=== PATIENT | female | born 1980 | race American Indian/Alaskan Native ===

== ENCOUNTER 2021-10-31 20:44 | Emergency (ER) | payer MEDICAID ==
[2021-11-01 03:24] LABS: Bacteria,Urine 1+ /HPF (Negative); Hyaline Casts,Urine 4 /LPF; Mucus,Urine 3+ /HPF
[2021-11-01 03:30] LABS: Bilirubin,Urine Negative (Negative); Blood,Urine Small (Negative); Color,Urine Yellow (Yellow); Urobilinogen,Urine < 2.0 mg/dL (<2.0)
--- NOTE | 2021-11-01 04:31 | Emergency Department Report ---
ED Back Pain/Injury HPI - General Chief Complaint: Back Pain/Injury Stated Complaint: BACK PAIN Source: patient Limitations: No Limitations - History of Present Illness Initial Comments: 41-year-old female presents to the ED complaining of low back pain x2 weeks. Patient denies any injury, unexplained weight loss neurological symptoms fever, IV drug use or steroid use. Patient diet denies any dysuria. Patient states pain sometimes often radiates to her right leg. Alert and oriented x3. Patient denies any prior medication prior to arrival . MD Complaint: back pain Onset/Timin -: week(s) Similar Symptoms Previously: Yes Radiation: right leg Severity: moderate Severity scale (0 -10): 6 Quality: aching Improves With: none Worsens With: none Associated Symptoms: denies other symptoms - Related Data Previous Rx's Medication Instructions Recorded Last Taken Type Amlodipine Besylate [Norvasc] 5 mg PO DAILY 30 Days #30 tab 11/01/21 Unknown Rx Nitrofurantoin [place]/M-Cryst 100 mg PO Q12HR 10 Days #20 capsule 11/01/21 Unknown Rx [Macrobid CAP] Allergies Allergy/AdvReac Type Severity Reaction Status Date / Time No Known Allergies Allergy Unverified 11/01/21 01:44 ED Review of Systems ROS: Stated complaint: BACK PAIN Other details as noted in HPI Constitutional: denies: chills, fever Eyes: denies: eye pain, eye discharge, vision change ENT: denies: ear pain, throat pain Respiratory: denies: cough, shortness of breath, wheezing Cardiovascular: denies: chest pain, palpitations Endocrine: no symptoms reported Gastrointestinal: denies: abdominal pain, nausea, diarrhea Genitourinary: denies: urgency, dysuria, discharge Musculoskeletal: denies: back pain, joint swelling, arthralgia Skin: denies: rash, lesions Neurological: denies: headache, weakness, paresthesias Psychiatric: denies: anxiety, depression Hematological/Lymphatic: denies: easy bleeding, easy bruising ED Past Medical Hx - Medications Home Medications: Home Medications Medication Instructions Recorded Confirmed Last Taken Type Amlodipine Besylate [Norvasc] 5 mg PO DAILY 30 Days #30 tab 11/01/21 Unknown Rx Nitrofurantoin [place]/M-Cryst 100 mg PO Q12HR 10 Days #20 capsule 11/01/21 Unknown Rx [Macrobid CAP] ED Physical Exam - General Limitations: No Limitations General appearance: alert, in no apparent distress - Head Head exam: Present: atraumatic, normocephalic - Eye Eye exam: Present: normal appearance - ENT ENT exam: Present: mucous membranes moist - Neck Neck exam: Present: normal inspection - Respiratory Respiratory exam: Present: normal lung sounds bilaterally. Absent: respiratory distress - Cardiovascular Cardiovascular Exam: Present: regular rate, normal rhythm. Absent: systolic murmur, diastolic murmur, rubs, gallop - GI/Abdominal GI/Abdominal exam: Present: soft, normal bowel sounds - Extremities Exam Extremities exam: Present: normal inspection - Back Exam Back exam: Present: normal inspection - Neurological Exam Neurological exam: Present: alert, oriented X3 - Psychiatric Psychiatric exam: Present: normal affect, normal mood - Skin Skin exam: Present: warm, dry, intact, normal color. Absent: rash ED Course Vital Signs 11/01/21 11/01/21 01:20 05:10 Temperature 98.1 F Pulse Rate 77 68 Respiratory 20 17 Rate Blood Pressure 180/102 184/108 [Right] O2 Sat by Pulse 97 100 Oximetry ED Medical Decision Making - Medical Decision Making 41-year-old female presents to the ED complaining of low back pain x2 weeks. Patient denies any injury, unexplained weight loss neurological symptoms fever, IV drug use or steroid use. Patient diet denies any dysuria. Patient states pain sometimes often radiates to her right leg. Alert and oriented x3. Patient denies any prior medication prior to arrival . No acute distress noted no ill appearance noted. Physical examination is unremarkable Urinalysis showed positive nitrate ,wbc 26 , will treat for acute urinary tract infection. Patient hypertension. Not treat asymptomatic hypertension restart patient on Norvasc 5 mg. Patient states she has been out of Norvasc 5 mg due to noncompliance . Rechecked the patient is resting quietly quietly and comfortable and feeling better. I discussed the results of diagnostic study, my clinical impression and the plan for further treatment with the patient. Patient agrees with plan and discharge at this present time. All question addressed. I have given the patient instruction regarding a diagnosis ,expectation ,follow- up and return precaution. I explained to the patient that emergent condition may arise and to return to the ED for new worsen and any new persisting condition. I have explained the importance of following up with the primary care physician or referral physician listed below has instructed. The patient verbalized understanding of discharge instruction. Critical care attestation.: If time is entered above; I have spent that time in minutes in the direct care of this critically ill patient, excluding procedure time. ED Disposition Clinical Impression: Acute urinary tract infection Hypertension Qualifiers: Hypertension type: primary hypertension Qualified Code(s): I10 - Essential (primary) hypertension Disposition: 01 HOME / SELF CARE / HOMELESS Is pt being admited?: No Does the pt Need Aspirin: No Condition: Stable Instructions: Antibiotic Medicine, Adult, [id number], Urinary Tract Infection, Adult, Hypertension, Adult, [id number], Hypertension (ED) Additional Instructions: Drink plenty of fluids Return to the ED for any worsening symptom Follow-up with primary care doctor Take Medication has prescribed Prescriptions: Nitrofurantoin [place]/M-Cryst [Macrobid CAP] 100 mg PO Q12HR 10 Days #20 capsule Amlodipine Besylate [Norvasc] 5 mg PO DAILY 30 Days #30 tab Referrals: [facility] [Provider Group] - 3-5 Days Time of Disposition: 04:35
[2021-11-01] MEDS ORDERED: amLODIPine 5 MG TAB PO ONE (05:07)
[2021-11-01 05:25] VITALS: BP 184/108
== END 2021-11-01 05:15 | disposition home or self-care (01) ==
LOC: ED 20:44
DX: N39.0 Urinary tract infection, site not specified (principal); I10 Essential (primary) hypertension
CPT/HCPCS: 81001; 87086; 99283

== ENCOUNTER 2022-01-07 12:11 | Emergency (ER) | payer MEDICAID ==
[2022-01-07] MEDS ORDERED: ALBUTEROL 2.5 MG/3 ML NEBU IH ONE (13:15)
[2022-01-07] MEDS ORDERED: predniSONE 50 MG TAB PO ONE (13:15)
--- NOTE | 2022-01-07 13:23 | Emergency Department Report ---
ED General Adult HPI - General Chief complaint: Adult Asthma Stated complaint: FEELING BAD WEAK COUGH Time Seen by Provider: 01/07/22 13:03 Source: patient Mode of arrival: Ambulatory Limitations: No Limitations - History of Present Illness Initial comments: 41-year-old -[place] Citizen female that is morbid obese presents to the emergency room stating that she just does not feel good. Patient states is been having coughing for the last few days and has vomited x2 in the last 2 days. She states that her blood pressure has been elevated in spite of taking her Norvasc. She reports her last menstrual period was in July and her last test was in October. She does admit to having a history of anemia. She had an appointment with her [employer] to see why she has not had a period but was declined to use to be seen as she was having a cough. Patient states her last COVID test was last Sunday. She denies any fever chills no nausea no vomiting no chest pain. She does report she has been using her inhaler for her asthma and wheezing. Onset/Timin -: days(s) Location: chest Severity scale (0 -10): 7 Improves with: none Worsens with: none Associated Symptoms: cough, headaches. denies: fever/chills, nausea/vomiting, shortness of breath Treatments Prior to Arrival: none - Related Data Previous Rx's Medication Instructions Recorded Last Taken Type Amlodipine Besylate [Norvasc] 5 mg PO DAILY 30 Days #30 tab 11/01/21 Unknown Rx Nitrofurantoin [place]/M-Cryst 100 mg PO Q12HR 10 Days #20 capsule 11/01/21 Unknown Rx [Macrobid CAP] Albuterol Sulfate [Proventil Hfa] 2 inhalation IH Q6H PRN #1 unit 01/07/22 Unknown Rx predniSONE [Deltasone] 50 mg PO QDAY 5 Days #5 tab 01/07/22 Unknown Rx Allergies Allergy/AdvReac Type Severity Reaction Status Date / Time No Known Allergies Allergy Unverified 11/01/21 01:44 ED Review of Systems ROS: Stated complaint: FEELING BAD WEAK COUGH Other details as noted in HPI Comment: All other systems reviewed and negative ED Past Medical Hx - Past Medical History Previous Medical History?: Yes Hx Hypertension: Yes Hx Asthma: Yes Additional medical history: Anemia - Surgical History Past Surgical History?: Yes Hx Cholecystectomy: Yes Additional Surgical History: Left Carpel tunnel - Medications Home Medications: Home Medications Medication Instructions Recorded Confirmed Last Taken Type Amlodipine Besylate [Norvasc] 5 mg PO DAILY 30 Days #30 tab 11/01/21 Unknown Rx Nitrofurantoin [place]/M-Cryst 100 mg PO Q12HR 10 Days #20 capsule 11/01/21 U nknown Rx [Macrobid CAP] Albuterol Sulfate [Proventil Hfa] 2 inhalation IH Q6H PRN #1 unit 01/07/22 Unknown Rx predniSONE [Deltasone] 50 mg PO QDAY 5 Days #5 tab 01/07/22 Unknown Rx ED Physical Exam - General Limitations: No Limitations General appearance: alert, in no apparent distress, obese - Head Head exam: Present: atraumatic, normocephalic - Eye Eye exam: Present: normal appearance, EOMI - ENT ENT exam: Present: mucous membranes moist, normal external ear exam - Neck Neck exam: Present: normal inspection, full ROM. Absent: tenderness - Respiratory Respiratory exam: Present: wheezes - Cardiovascular Cardiovascular Exam: Present: regular rate, normal rhythm. Absent: systolic murmur, diastolic murmur, rubs, gallop - Extremities Exam Extremities exam: Present: normal inspection - Back Exam Back exam: Present: normal inspection - Neurological Exam Neurological exam: Present: alert, oriented X3, normal gait - Psychiatric Psychiatric exam: Present: normal affect, normal mood - Skin Skin exam: Present: warm, dry, intact, normal color. Absent: rash ED Course Vital Signs 01/07/22 12:27 Temperature 98.3 F Pulse Rate 75 Respiratory 20 Rate Blood Pressure 164/107 O2 Sat by Pulse 99 Oximetry ED Medical Decision Making - Radiology Data Radiology results: report reviewed - Medical Decision Making 41-year-old -[place] Citizen female that is morbid obese presents to the emergency room stating that she just does not feel good. Patient states is been having coughing for the last few days and has vomited x2 in the last 2 days. She states that her blood pressure has been elevated in spite of taking her Norvasc. She reports her last menstrual period was in July and her last test was in October. She does admit to having a history of anemia. She had an appointment with her [employer] to see why she has not had a period but was declined to use to be seen as she was having a cough. Patient states her last COVID test was last Sunday. She denies any fever chills no nausea no vomiting no chest pain. She does report she has been using her inhaler for her asthma and wheezing. CBC, CMP HCG CXR. Duo neb and Prednisone 50 mg po Critical care attestation.: If time is entered above; I have spent that time in minutes in the direct care of this critically ill patient, excluding procedure time. ED Disposition Clinical Impression: Wheezing Disposition: HOME / SELF CARE / HOMELESS Is pt being admited?: No Does the pt Need Aspirin: No Condition: Stable Instructions: Cough, Adult, [id number] Additional Instructions: Chest x-ray is normal. Labs are stable. Negative test. Complete steroids as prescribed. Use inhaler as needed. Folloe up with your [facility] provider. Prescriptions: predniSONE [Deltasone] 50 mg PO QDAY 5 Days #5 tab Albuterol Sulfate [Proventil Hfa] 2 inhalation IH Q6H PRN #1 unit PRN Reason: Wheezing Referrals: ALANA ZALDIVAR MD [Primary Care Provider] - 3-5 Days Forms: Work/School Release Form(ED) Time of Disposition: 14:42
[2022-01-07 13:37] LABS: Hemoglobin 12.4 gm/dl (10.1-14.3); Mean Corpuscular HGB Conc 34 % (30-34); Mean Corpuscular Volume 82 fl (79-97); Platelet Count 163 K/mm3 (140-440); Red Blood Count 4.48 M/mm3 (3.65-5.03); Red Cell Distribution Width 14.9 % (13.2-15.2)
[2022-01-07 14:04] LABS: Alanine Aminotransferase 12 units/L (7-56); Albumin 4.1 g/dL (3.9-5); Blood Urea Nitrogen 8 mg/dL (7-17); Calcium 9.2 mg/dL (8.4-10.2); Hemolysis Index 6
[2022-01-07 14:09] LABS: BUN/Creatinine Ratio 13
[2022-01-07 14:14] LABS: Anisocytosis 1+; Basophils % (Manual) 0 % (0.0-1.8); Platelet Estimate Consistent w Auto; Total Cells Counted 100
--- NOTE | 2022-01-07 14:27 | XRay Report ---
XR chest routine 2V INDICATION / CLINICAL INFORMATION: cough. COMPARISON: None available. FINDINGS: SUPPORT DEVICES: None. HEART /PULMONARY VASCULATURE: No significant abnormality. LUNGS / PLEURA: No significant pulmonary or pleural abnormality. No pneumothorax. ADDITIONAL FINDINGS: No significant additional findings. IMPRESSION: 1. No acute findings. Signer Name: Jonh Gibson MD Signed: 01/07/2022 2:23 PM Workstation Name: [id number]
[2022-01-07 14:48] VITALS: BP 132/84
== END 2022-01-07 14:48 | disposition home or self-care (01) ==
LOC: ED 12:11
DX: R06.2 Wheezing (principal); I10 Essential (primary) hypertension; Z90.49 Acquired absence of other specified parts of digestive tract
CPT/HCPCS: 36415; 71046; 80053; 84702; 85007; 85025; 94640; 99284; J7512